=== PATIENT | male | born 1940 | race Caucasian/White ===

== ENCOUNTER 2019-11-12 21:09 | Emergency (ER) | payer MEDICARE, OTHER ==
[~2019-11-12] VITALS: Ht 175.3 cm; Wt 85.0 kg
[2019-11-12 21:15] VITALS: BP 150/75
[2019-11-12] MEDS ORDERED: acetaminophen 325mg tablet PO ONE (22:10)
== END 2019-11-12 22:59 | disposition home or self-care (01) ==
LOC: ER 21:10
DX: S16.1XXA Strain of muscle, fascia and tendon at neck level, initial encounter (principal); S00.83XA Contusion of other part of head, initial encounter; S00.31XA Abrasion of nose, initial encounter; S00.511A Abrasion of lip, initial encounter; W01.198A Fall on same level from slipping, tripping and stumbling with subsequent striking against other object, initial encounter; Y93.89 Activity, other specified; Y92.89 Other specified places as the place of occurrence of the external cause; Y99.8 Other external cause status
CPT/HCPCS: 70450; 70486; 72125; 99285

== ENCOUNTER → 2021-05-29 | Outpatient (CLI) | payer MEDICARE, OTHER | END | disposition home or self-care (01) | LOC: CARD DIAG 15:25 | PROVIDERS: ATTEND Internal Medicine Cardiovascular Disease | DX: I08.8 Other rheumatic multiple valve diseases (principal) | CPT/HCPCS: 93306 ==

== ENCOUNTER 2023-05-18 08:28 | Outpatient (CLI) | payer MEDICARE, OTHER | END 2023-05-18 23:59 | disposition home or self-care (01) | LOC: CARD DIAG 08:28 | PROVIDERS: ATTEND Internal Medicine Cardiovascular Disease | DX: I08.8 Other rheumatic multiple valve diseases (principal) | CPT/HCPCS: 93306 ==